=== PATIENT | male | born 1955 | race Caucasian/White ===

== ENCOUNTER → 2017-02-22 | Outpatient (CLI) | payer OTHER ==
--- NOTE | 2017-02-23 09:09 | REP ---
Clinical: Lateral pain . Technique: AP, lateral, bilateral oblique views right ankle . Findings: No acute fracture or dislocation. Skeletal structures and joint spaces are intact and normal. Ankle mortise appears stable. No subcutaneous emphysema or radiodense foreign body. Impression: Normal age appropriate right ankle radiograph series. Signed by Rustam Buchanan MD 02/22/2017 11:26 A
== END ==
LOC: M WUC 11:10
PROVIDERS: ATTEND Physician Assistant
DX: M25.571 Pain in right ankle and joints of right foot (principal)

== ENCOUNTER → 2017-12-15 | Outpatient (CLI) | payer OTHER ==
[2017-12-15 12:07] LABS: ALT/SGPT 33 U/L (12-78); ANION GAP 4 MEQ/L (8-16); AST/SGOT 21 U/L (7-37); BLOOD UREA NITROGEN 17 MG/DL (7-18); CALCIUM LEVEL 8.9 MG/DL (8.8-10.2); CARBON DIOXIDE LEVEL 30 MEQ/L (21-32); CHLORIDE LEVEL 107 MEQ/L (98-107); CREATININE FOR GFR 1.22 MG/DL (0.70-1.30); GLOMERULAR FILTRATION RATE > 60.0 (>49); GLUCOSE, FASTING 125 MG/DL (70-100); POTASSIUM SERUM 4.7 MEQ/L (3.5-5.1); SODIUM LEVEL 141 MEQ/L (136-145)
[2017-12-15 12:08] LABS: ALBUMIN 3.9 GM/DL (3.2-5.2); ALBUMIN/GLOBULIN RATIO 1.22 (1.00-1.93); ALKALINE PHOSPHATASE 67 U/L (45-117); BILIRUBIN,TOTAL 0.6 MG/DL (0.2-1.0); CHOLESTEROL LEVEL 250 MG/DL (<200); CHOLESTEROL RISK RATIO 5.813 (<5); HDL CHOLESTEROL 43 MG/DL (>40); LDL CHOLESTEROL 168 MG/DL (<100); NON-HDL-C 207 MG/DL; TOTAL PROTEIN 7.1 GM/DL (6.4-8.2); TRIGLYCERIDES LEVEL 194 MG/DL (<150)
[2017-12-15 12:49] LABS: ESTIMATED AVERAGE GLUCOSE 131 MG/DL (60-110); HEMOGLOBIN A1c 6.2 %
== END ==
LOC: M WUC 08:43
DX: E78.5 Hyperlipidemia, unspecified (principal); R74.0 Nonspecific elevation of levels of transaminase and lactic acid dehydrogenase [LDH]; E11.9 Type 2 diabetes mellitus without complications
CPT/HCPCS: 80053

== ENCOUNTER → 2020-06-16 | Outpatient (CLI) | payer MEDICARE, OTHER ==
--- NOTE | 2020-06-16 15:23 | REP ---
INDICATION: ABNORMAL EKG, OLD MYOCARDIAL INFARCTION, ATHSCL HEART DISEAS COMPARISON: None. TECHNIQUE: PA and lateral. FINDINGS: The mediastinum and cardiac silhouette are normal. The lung childers are clear and without acute consolidation, effusion, or pneumothorax. The skeletal structures are intact and normal. IMPRESSION: No acute cardiopulmonary process. <Electronically signed by Rustam Buchanan > 06/16/20 [id number]
== END ==
LOC: M WUC 14:52
PROVIDERS: ATTEND Physician Assistant
DX: R94.31 Abnormal electrocardiogram [ECG] [EKG] (principal); I25.2 Old myocardial infarction; I25.10 Atherosclerotic heart disease of native coronary artery without angina pectoris

== ENCOUNTER 2022-06-14 10:57 | Day surgery (SDC) | payer MEDICARE ==
[~2022-06-14] VITALS: Ht 170.2 cm; Wt 83.5 kg
[~2022-06-14 10:57] MED LIST: ECOT81TA5 PO; ICAP1CAP PO; LIVA4TAB PO; NS 1,000 ML IV ONE; TELM1TAB37 PO; VITA100093 PO
[2022-06-14] MEDS ORDERED: propofoL 200 MG/20 ML VIAL As Ordered ONE ×2 (12:49→13:03)
[2022-06-14 13:40] VITALS: BP 107/67
== END 2022-06-14 13:43 | disposition home or self-care (01) ==
LOC: M OPP 10:57
PROVIDERS: ATTEND Internal Medicine Gastroenterology
DX: Z12.11 Encounter for screening for malignant neoplasm of colon (principal); D12.6 Benign neoplasm of colon, unspecified; K57.30 Diverticulosis of large intestine without perforation or abscess without bleeding; K64.0 First degree hemorrhoids; Z80.0 Family history of malignant neoplasm of digestive organs

== ENCOUNTER → 2022-10-15 | Outpatient (CLI) | payer MEDICARE ==
[~2022-10-15] MED LIST changes: -NS 1,000 ML IV ONE
[2022-10-15 17:28] LABS: HEMATOCRIT 46.3 % (42.0-52.0); HEMOGLOBIN 15.3 g/dl (13.5-17.5); MEAN CORPUSCULAR HEMOGLOBIN 30.2 pg (27.0-33.0); MEAN CORPUSCULAR VOLUME 91.5 fl (80.0-96.0); PLATELET COUNT, AUTOMATED 280 10^3/uL (150-450); RED BLOOD COUNT 5.06 10^6/uL (4.30-6.10); WHITE BLOOD COUNT 6.1 10^3/uL (4.0-10.0)
[2022-10-15 17:34] LABS: APPEARANCE, URINE CLEAR (CLEAR); BACTERIA, URINE AUTO NEGATIVE (NEGATIVE); BILIRUBIN, URINE AUTO NEGATIVE (NEGATIVE); BLOOD, URINE BLOOD 2+ (NEGATIVE); COLOR, URINE YELLOW (YELLOW); GLUCOSE, URINE (UA) AUTO NEGATIVE (NEGATIVE); KETONE, URINE AUTO NEGATIVE (NEGATIVE); LEUKOCYTE ESTERASE, URINE AUTO NEGATIVE (NEGATIVE); MUCUS, URINE SMALL (NEGATIVE); NITRITE, URINE AUTO NEGATIVE (NEGATIVE); PROTEIN, URINE AUTO NEGATIVE (NEGATIVE); RBC, URINE AUTO 107 /HPF (0-3); SPECIFIC GRAVITY URINE AUTO 1.017 (1.002-1.035); SQUAMOUS EPITHELIAL CELL UR AU 0 /HPF (0-6); WBC, URINE AUTO 1 /HPF (0-3)
[2022-10-15 17:47] LABS: HEMOGLOBIN A1c 5.5 % (4.0-6.0)
[2022-10-15 18:01] LABS: ALBUMIN 3.8 G/DL (3.2-5.2); ALKALINE PHOSPHATASE 70 U/L (46-116); ALT/SGPT 18 U/L (7.0-40); AST/SGOT 16 U/L (<34); BILIRUBIN,TOTAL 0.9 MG/DL (0.3-1.2); BLOOD UREA NITROGEN 15 MG/DL (9-23); CALCIUM LEVEL 9.4 MG/DL (8.3-10.6); CARBON DIOXIDE LEVEL 27 MMOL/L (20-31); CHLORIDE LEVEL 107 MMOL/L (98-107); CHOLESTEROL LEVEL 256 MG/DL (<200); CHOLESTEROL RISK RATIO 5.31 (<5); CREATININE FOR GFR 1.03 MG/DL (0.70-1.30); GLOMERULAR FILTRATION RATE > 60.0 (>49); GLUCOSE, FASTING 93 MG/DL (74-106); HDL CHOLESTEROL 48.2 MG/DL (>40); LDL CHOLESTEROL 186.4 MG/DL (<100); NON-HDL-C 207.8 MG/DL; POTASSIUM SERUM 4.8 MMOL/L (3.5-5.1); SODIUM LEVEL 140 MMOL/L (136-145); TOTAL PROTEIN 6.7 G/DL (5.7-8.2); TRIGLYCERIDES LEVEL 107 MG/DL (<150)
[2022-10-15 18:03] LABS: PROSTATIC SPECIFIC AG MONITOR 0.39 NG/ML (< 4.00)
== END ==
LOC: M WUC 11:13
PROVIDERS: ATTEND Physician Assistant
DX: E11.9 Type 2 diabetes mellitus without complications (principal); E78.5 Hyperlipidemia, unspecified; Z12.5 Encounter for screening for malignant neoplasm of prostate; R35.1 Nocturia

== ENCOUNTER → 2023-04-28 | Outpatient (CLI) | payer MEDICARE ==
[2023-04-28 11:19] LABS: HEMATOCRIT 47.1 % (42.0-52.0); HEMOGLOBIN 15.6 g/dl (13.5-17.5); MEAN CORPUSCULAR HEMOGLOBIN 30.1 pg (27.0-33.0); MEAN CORPUSCULAR HGB CONC 33.1 g/dl (32.0-36.5); MEAN CORPUSCULAR VOLUME 90.8 fl (80.0-96.0); PLATELET COUNT, AUTOMATED 285 10^3/uL (150-450); RED BLOOD COUNT 5.19 10^6/uL (4.30-6.10); WHITE BLOOD COUNT 6.2 10^3/uL (4.0-10.0)
[2023-04-28 11:52] LABS: ALBUMIN 3.8 G/DL (3.2-5.2); ALKALINE PHOSPHATASE 65 U/L (46-116); ALT/SGPT 21 U/L (7.0-40); AST/SGOT 19 U/L (<34); BILIRUBIN,TOTAL 0.8 MG/DL (0.3-1.2); BLOOD UREA NITROGEN 16 MG/DL (9-23); CALCIUM LEVEL 9.3 MG/DL (8.3-10.6); CARBON DIOXIDE LEVEL 29 MMOL/L (20-31); CHLORIDE LEVEL 104 MMOL/L (98-107); CHOLESTEROL LEVEL 271 MG/DL (<200); CHOLESTEROL RISK RATIO 5.21 (<5); CREATININE FOR GFR 0.99 MG/DL (0.70-1.30); GLOMERULAR FILTRATION RATE > 60.0 (>49); GLUCOSE, FASTING 94 MG/DL (74-106); LDL CHOLESTEROL 194.2 MG/DL (<100); POTASSIUM SERUM 4.5 MMOL/L (3.5-5.1); SODIUM LEVEL 139 MMOL/L (136-145); TOTAL PROTEIN 6.8 G/DL (5.7-8.2); TRIGLYCERIDES LEVEL 124 MG/DL (<150)
[2023-04-28 12:14] LABS: HEMOGLOBIN A1c 6.1 % (4.0-6.0)
== END ==
LOC: M WUC 09:12
PROVIDERS: ATTEND Physician Assistant
DX: E11.9 Type 2 diabetes mellitus without complications (principal); E78.5 Hyperlipidemia, unspecified